=== PATIENT | male | born 1985 | race Caucasian/White ===

== ENCOUNTER 2018-10-31 06:22 | Emergency (ER) | payer BC ==
--- OUTSIDE RECORDS SUMMARY | 2018-10-31 06:38 | XMS REPORT | Continuity of Care Document ---
:1985 External Reference #:[id number] Demographics Address [address] [place] [address] Mobile Phone [phone] Email Address Preferred Language en Marital Status Not or Restorationism Affiliation Unknown Race White Ethnic Group Not or Author Name Letitia Nash Care Team Providers Name Role Phone Judith Johnson MD Primary Care Physician Unavailable Payers Type Date Identification Numbers Payment Provider Subscriber Effective: Policy Number: [id number] CARI Lott 2017 PayID: [id number] [address] [address] [place] [address] Advance Directives Description No Information Available Problems Date Description Provider Status Onset: 01/28/2018 Injury of shoulder region Santos Taylor MD Active Onset: 01/28/2018 Disorder of shoulder Santos Taylor MD Active Onset: 01/28/2018 Localized, primary osteoarthritis of the Santos Taylor MD Active shoulder region Onset: 01/28/2018 Sprain of acromioclavicular ligament Santos Taylor MD Active Family History Date Family Member(s) Problem(s) Comments General Cancer Siblings 2 Social History Type Date Description Comments Sex Unknown Marital Status Lives With Spouse Occupation Currently Working ETOH Use Denies alcohol use Tobacco Use Start: Unknown Patient has never smoked Recreational Drug Use Never Used Drugs Smoking Status Reviewed: 10/08/18 Patient has never smoked Exercise Type/Frequency Exercises regularly Allergies, Adverse Reactions, Alerts Description No Known Drug Allergies Medications Description No Active Medications Medications Administered in Office Medication Date Status Form Strength Qnty SIG Indications Ordering Provider Triamcinolone 01/28/ Administered Injection Zaneb (Kenalog) 2017 MD Claudia Triamcinolone 01/28/ Administered Injection Zaneb (Kenalog) 2018 MD Claudia Immunizations Description No Information Available Vital Signs Date Vital Result Comment 10/08/2018 7:52am Height 74 inches 6'2" Weight 218.00 lb Heart Rate 56 /min BP Systolic Sitting 120 mmHg Lue large cuff BP Diastolic Sitting 80 mmHg Lue large cuff Respiratory Rate 12 /min O2 % BldC Oximetry 97 % BMI (Body Mass Index) 28.0 kg/m2 Neck Circumference in inches 16.50 01/28/2018 9:50am Height 74 inches 6'2" Weight 200.00 lb BP Systolic 128 mmHg BP Diastolic 78 mmHg Respiratory Rate 18 /min Pain Level 5 BMI (Body Mass Index) 25.7 kg/m2 12/31/2017 8:10am Height 74 inches 6'2" Weight 200.00 lb BP Systolic 128 mmHg BP Diastolic 84 mmHg Respiratory Rate 18 /min Body Temperature 97.1 F Pain Level 9 BMI (Body Mass Index) 25.7 kg/m2 Results Description No Information Available Procedures Date Code Description Status 01/28/2018 90854 Inject/Drain Joint/Bursa Major W/O US Completed Encounters Type Date Location Provider Dx Diagnosis Office Visit 10/08/2018 [facility] Angelina Ahmadi MD R06.83 Snoring 8:30a Services Of Machine Stapler R53.83 Other fatigue Office Visit 01/28/2018 [facility] S43.52xA Sprain of left 9:45a Services Of MD Claudia acromioclavicular C.M.A. joint, initial encounter M19.012 Primary osteoarthritis, left shoulder M75.42 Impingement syndrome of left shoulder S46.102A Unsp injury of musc/fasc/tend long hd bicep, left arm, init M75.22 Bicipital tendinitis, left shoulder M24.012 Loose body in left shoulder Office Visit 12/31/2017 8:00a Orthopedic Santos Taylor, M25.512 Pain in left Services Of shoulder C.M.A. S43.52xA Sprain of left acromioclavicular joint, initial encounter M19.012 Primary osteoarthritis, left shoulder M75.42 Impingement syndrome of left shoulder S46.102A Unsp injury of musc/fasc/tend long hd bicep, left arm, init M75.22 Bicipital tendinitis, left shoulder Plan of Treatment Future Appointment(s):11/11/2018 1:00 pm - Dilma Vivar, LELA, RN, DIRECTOR OF RETAIL ANALYTICS-[facility] at [facility]10/08/2018 - Angelina Ahmadi, MDR06.83 SnoringNew Orders:Home Sleep Testing, Ordered: 10/08/18Follow up:2-3 zdtgcC91.83 Other fatigue
--- NOTE | 2018-10-31 07:29 | ED ---
Upper Extremity Pain - HPI Summary HPI Summary: Patient is a 33-year-old male presenting to the ED with a left elbow injury after a fall this morning. He endorses pain to the elbow without pain to the shoulder or wrist joint. He denies any other pain or symptoms. He states he also feels he may have hit his head, but denies any headache, confusion, memory loss. - History of Current Complaint Chief Complaint: EDExtremityUpper Stated Complaint: FALL, LEFT ARM INJURY Time Seen by Provider: 10/31/18 06:28 Hx Obtained From: Patient Mechanism Of Injury: Direct Blow Onset/Duration: Started Hours Ago Timing: Constant Severity Initially: Moderate Severity Currently: Moderate Pain Location: Elbow Character: Aching Aggravating Factor(s): Movement, Lifting, Flexion, Extension Alleviating Factor(s): Rest, Ice Associated Signs & Symptoms: Positive: Swelling Related History: Dominant Hand Right - Risk Factors Non-Orthopedic Risk Factor: Negative DVT Risk Factors: Negative Septic Arthritis Risk Factor: Negative Compartment Syndrome Risk Factors: Pain - Allergies/Home Medications Allergies/Adverse Reactions: Allergies Allergy/AdvReac Type Severity Reaction Status Date / Time No Known Allergies Allergy Verified 10/31/18 06:59 PMH/Surg Hx/FS Hx/Imm Hx Previously Healthy: Yes Endocrine/Hematology History: Denies: Hx Anticoagulant Therapy, Hx Blood Disorders, Hx Diabetes Cardiovascular History: Denies: Hx Hypertension, Hx Pacemaker/ICD History: Denies: Hx Renal Disease Musculoskeletal History: Denies: Hx Back Problems Sensory History: Denies: Hx Hearing Aid Psychiatric History: Denies: Hx Panic Disorder - Immunization History Hx Pertussis Vaccination: No Immunizations Up to Date: Yes Infectious Disease History: No Infectious Disease History: Denies: Traveled Outside the [place] in Last 30 Days - Family History Known Family History: Positive: Other - breast and colon ca - Social History Occupation: Employed Full-time Lives: With Family Alcohol Use: Occasionally Hx Substance Use: No Substance Use Type: Reports: None Smoking Status (MU): Never Smoked Tobacco Review of Systems Constitutional: Negative Negative: Fever, Chills, Fatigue, Skin Diaphoresis Negative: Palpitations, Chest Pain Negative: Shortness Of Breath, Cough Genitourinary: Negative Positive: no symptoms reported, see HPI Positive: Arthralgia, Myalgia Positive: Other - abrasion Neurological: Negative All Other Systems Reviewed And Are Negative: Yes Physical Exam Triage Information Reviewed: Yes Vital Signs On Initial Exam: Initial Vitals Temp Pulse Resp BP Pulse Ox 96.7 F 59 16 158/97 99 10/31/18 06:23 10/31/18 06:23 10/31/18 06:23 10/31/18 06:23 10/31/18 06:23 Vital Signs Reviewed: Yes Appearance: Positive: Well-Appearing, Well-Nourished Skin: Positive: Warm, Other - abrasion to the L elbow Eyes: Positive: EOMI, AMILCAR, Conjunctiva Clear Neck: Positive: Supple Respiratory/Lung Sounds: Positive: Clear to Auscultation, Breath Sounds Present Cardiovascular: Positive: RRR, Pulses are Symmetrical in both Upper and Lower Extremities Musculoskeletal: Positive: Pain @ - left elbow Neurological: Positive: Sensory/Motor Intact, Alert, Oriented to Person Place, Time, Speech Normal Psychiatric: Positive: Affect/Mood Appropriate AVPU Assessment: Alert Diagnostics - Vital Signs Vital Signs Temp Pulse Resp BP Pulse Ox 10/31/18 06:23 96.7 F 59 16 158/97 99 - Laboratory Lab Statement: Any lab studies that have been ordered have been reviewed, and results considered in the medical decision making process. Course/Dx - Course Course Of Treatment: Patient is evaluated for left elbow injury. There is small abrasion to left elbow. Flexion and extension without discomfort. Xray obtained which shows no acute osseous injury. Patient's abrasion was treated with bacitracin and gauze wrapped. He is okay for discharge at this time. - Diagnoses Differential Diagnosis/HQI/PQRI: Positive: Fracture (Closed), Strain, Sprain Provider Diagnoses: Contusion, elbow Discharge - Sign-Out/Discharge Documenting (check all that apply): Patient Departure Patient Received Moderate/Deep Sedation with Procedure: No - Discharge Plan Condition: Stable Disposition: HOME Patient Education Materials: Elbow Sprain (ED) Referrals: Rosita Chew [Primary Care Provider] - Additional Instructions: Ibuprofen 600mg three times daily Ice to the area today - Billing Disposition and Condition Condition: STABLE Disposition: Home
[2018-10-31 07:43] VITALS: BP 141/87
== END 2018-10-31 07:42 | disposition home or self-care (01) ==
LOC: ED 06:22
DX: S50.02XA Contusion of left elbow, initial encounter (principal); S50.312A Abrasion of left elbow, initial encounter; W19.XXXA Unspecified fall, initial encounter; Y92.9 Unspecified place or not applicable
CPT/HCPCS: 99282